=== PATIENT | female | born 1990 | race African-American/Black ===

== ENCOUNTER 2023-01-23 15:22 | Emergency (ER) | payer MEDICAID, OTHER ==
[~2023-01-23] VITALS: Ht 167.6 cm; Wt 106.0 kg
[2023-01-23 15:53] VITALS: O2SAT 99
[2023-01-23] MEDS ORDERED: ACET-2708 MT (19:29)
[2023-01-23] MEDS ORDERED: CYCL10TA21 MT (19:29)
[2023-01-23 20:00] VITALS: BP 138/73; PULSE 105; RESP 18; TEMP 98.6
== END 2023-01-23 20:01 | disposition home or self-care (01) ==
LOC: ER 15:22
DX: M25.552 Pain in left hip (principal)
CPT/HCPCS: 72170; 81025; 99283